=== PATIENT | female | born 1940 | race Caucasian/White ===

== ENCOUNTER 2021-04-08 12:35 | Outpatient (CLI) | payer MEDICARE, SELFPAY ==
--- NOTE | ~2021-04-08 | US_ITS ---
US soft tissue LE RT 04/08/2021 13:19 Indication: Personal history of physical injury Procedure: High-resolution ultrasound of the right lower leg Comparison: No prior studies for comparison. Findings: There is a complex fluid collection in the right lower extremity anteriorly medial to the t ibia measuring 3 x 1.1 x 2.5 cm. No internal vascularity. Impression: 1: Complex fluid collection right lower extremity in the area of palpable concern, most likely posttr aumatic seroma/hematoma. Recommend follow-up ultrasound as clinically indicated to assess for resolut ion. Reviewed, dictated and finalized at location A. Impression: 1: Complex fluid collection right lower extremity in the area of palpable corwin rn, most likely posttraumatic seroma/hematoma. Recommend follow-up ultrasound a s clinically indicated to assess for resolution.
== END 2021-04-08 12:36 | disposition home or self-care (01) ==
LOC: ANHIMG 12:39
PROVIDERS: PCP Internal Medicine; Visit Provider Surgery
DX: Z87.828 Personal history of other (healed) physical injury and trauma (principal); M79.89 Other specified soft tissue disorders
CPT/HCPCS: 76882